=== PATIENT | male | born 1935 | race Two or more races ===

== ENCOUNTER 2023-04-30 12:49 | Inpatient (IN) | payer MEDICARE ==
[~2023-04-30] VITALS: Ht 180.3 cm; Wt 62.1 kg
[2023-04-30] MEDS ORDERED: POLY17PO4 PO (13:33)
[2023-04-30] MEDS ORDERED: PANT40TA2 PO (13:33)
[2023-04-30] MEDS ORDERED: IPRA3AMP23 IH (13:33)
[2023-04-30] MEDS ORDERED: DOCU-141 PO (13:33)
[2023-04-30] MEDS ORDERED: LORA-259 PO (13:33)
[2023-04-30] MEDS ORDERED: OLME20TA13 PO (13:33)
[2023-04-30] MEDS ORDERED: ONDA4TAB5 PO (13:33)
[2023-04-30] MEDS ORDERED: ACET-868 PO (13:33)
[2023-04-30] MEDS ORDERED: MECL-182 PO (13:33)
[2023-04-30] MEDS ORDERED: FINA5TAB11 PO (13:33)
[2023-04-30 13:48] LABS: BASOPHILS % (AUTO) 0.5 % (0.0-2.0); EOSINOPHILS % (AUTO) 0.5 % (0.0-6.0); HEMATOCRIT 42 % (39-51); HEMOGLOBIN 13.7 g/dL (13.5-17.5); LYMPHOCYTES # (AUTO) 0.9 K/uL (0.8-4.8); LYMPHOCYTES % (AUTO) 18.2 % (20.0-44.0); MEAN CORPUSCULAR HEMOGLOBIN 30 PG (26.0-33.0); MEAN CORPUSCULAR HGB CONC 33 g/dl (31.0-36.0); MEAN CORPUSCULAR VOLUME 90 fL (80-96); MONOCYTES # (AUTO) 0.4 K/uL (0.1-1.30); MONOCYTES % (AUTO) 7.8 % (2.0-12.0); NEUTROPHILS # (AUTO) 3.8 K/uL (1.8-8.9); PLATELET COUNT (AUTO) 143 K/uL (150-450); RED BLOOD CELL COUNT(AUTO) 4.66 MIL/uL (4.5-6.0); RED CELL DISTRIBUTION WIDTH 13.5 % (11.5-15.0); WHITE BLOOD COUNT (AUTO) 5.2 K/uL (4.3-11.0)
[2023-04-30 13:55] LABS: CALCIUM, SERUM 9.4 mg/dL (8.5-10.1); CARBON DIOXIDE 24 mmol/L (21-32); CHLORIDE 105 mmol/L (98-107); CREATININE 0.9 mg/dL (0.6-1.3); GLUCOSE 107 mg/dL (74-106); POTASSIUM 3.9 mmol/L (3.5-5.1); SODIUM SERUM 140 mmol/L (136-145); UREA NITROGEN, BLOOD 16 mg/dL (7-18)
[2023-04-30 14:01] LABS: ALANINE AMINOTRANSFERASE 15 U/L (12-78); ALBUMIN 3.7 g/dL (3.4-5.0); ALKALINE PHOSPHATASE 62 U/L (46-116); ASPARTATE AMINOTRANSFERASE 20 U/L (15-37); BILIRUBIN,DIRECT 0.2 mg/dL (0.0-0.2); BILIRUBIN,TOTAL 1.2 mg/dL (0.2-1.0); TOTAL PROTEIN, SERUM 7.1 g/dL (6.4-8.2)
[2023-04-30 14:09] LABS: ACETAMINOPHEN <10 ug/ml (10-30); ALCOHOL, BLOOD < 3 mg/dL (0-10); SALICYLATE < 2.3 mg/dL (2.8-20.0)
[2023-04-30 14:14] LABS: ADD URINE CULTURE YES; APPEARANCE,URINE CLEAR (CLEAR); BACTERIA,URINE Rare /HPF (None Seen); BILIRUBIN,URINE 1+ (NEGATIVE); BLOOD, URINE NEGATIVE Ery/uL (NEGATIVE); COLOR,URINE YELLOW (YELLOW); KETONES,URINE 1+ mg/dL (NEGATIVE); LEUKOCYTE ESTERASE ,URINE 1+ (NEGATIVE); NITRITE, URINE NEGATIVE (NEGATIVE); PH,URINE 5.5 (5.0-8.0); PROTEIN,URINE TRACE mg/dl (NEGATIVE); RBC,URINE 0-2 /HPF (0-2); SQUAMOUS EPITHELIAL CELL,UR Few /HPF (None Seen); UGLUCOSE NEGATIVE (NEGATIVE); UROBILINOGEN,URINE 0.2 EU/dL (0.2)
[2023-04-30 14:28] LABS: AMPHETAMINE, URINE NEGATIVE (NEGATIVE); BARBITURATE, URINE NEGATIVE (NEGATIVE); BENZODIAZEPINE, URINE NEGATIVE (NEGATIVE); CANNABINOID, URINE NEGATIVE (NEGATIVE); COCCAINE, URINE NEGATIVE (NEGATIVE); OPIATE, URINE NEGATIVE (NEGATIVE); PHENCYCLIDINE SCREEN,URINE NEGATIVE (NEGATIVE)
[2023-04-30] MEDS ORDERED: ACETAMINOPHEN 325 MG TABLET PO PRN ×2 (16:30→21:30)
[2023-04-30] MEDS: DOCUSATE SODIUM 100 MG CAPSULE PO SCH (17:00)
[2023-04-30] MEDS ORDERED: IPRATROPIUM NEB FS 0.5 MG/2.5 ML AMPUL.NEB NEB PRN (17:00)
[2023-04-30] MEDS ORDERED: ALBUTEROL FS 2.5 MG/0.5 ML VIAL.NEB NEB PRN (17:00)
[2023-04-30] MEDS ORDERED: TEMAZEPAM 7.5 MG CAPSULE PO PRN (21:30)
[2023-04-30] MEDS ORDERED: MAGNESIUM HYDROXIDE 30 ML UDC PO PRN (21:30)
[2023-04-30] MEDS ORDERED: LORAZEPAM 0.5 MG TABLET PO PRN (21:30)
[2023-04-30] MEDS ORDERED: BLOOD SUGAR DIAGNOSTIC 1 EACH STRIP IN ONE (21:30)
[2023-04-30] MEDS ORDERED: MAG HYDROX/AL HYDROX/SIMETH 30 ML UDC PO PRN (21:30)
[2023-04-30] MEDS: FINASTERIDE (5 MG) 5 MG TABLET PO SCH (21:57)
[2023-04-30] MEDS: CEPHALEXIN MONOHYDRATE 500 MG CAPSULE PO SCH (21:57)
[2023-04-30 23:38] VITALS: BP 144/71; TEMP 98.1; O2SAT 99
[2023-05-01] MEDS: CEPHALEXIN MONOHYDRATE 500 MG CAPSULE PO SCH ×3 (05:15→21:18)
[2023-05-01 07:38] LABS: CREATININE 0.9 mg/dL (0.6-1.3)
[2023-05-01 07:45] LABS: CHOLESTEROL 182 mg/dL (<200); HDL CHOLESTEROL 47 mg/dL (40-60); LDL 117 mg/dL (0-99); TRIGLYCERIDES 74 mg/dL (30-150)
[2023-05-01 08:00] VITALS: BP 129/60; TEMP 97.8; O2SAT 95
[2023-05-01] MEDS: PANTOPRAZOLE 40 MG TABLET.DR PO SCH (08:17)
[2023-05-01] MEDS: POLYETHYLENE GLYCOL 3350 17 GM POWD.PACK PO SCH (09:02)
[2023-05-01] MEDS: DOCUSATE SODIUM 100 MG CAPSULE PO SCH ×2 (09:02→17:13)
[2023-05-01] MEDS: LOSARTAN POTASSIUM 50 MG TABLET PO SCH (09:03)
[2023-05-01] MEDS: DIVALPROEX SODIUM 125 MG CAP.SPRINK PO SCH ×2 (13:18→17:13)
[2023-05-01 16:00] VITALS: BP 133/81; TEMP 97.9; O2SAT 98
[2023-05-01] MEDS: ENSURE ENLIVE 237 ML LIQUID (VANILLA) PO SCH (17:14)
[2023-05-01 21:04] VITALS: BP 132/77; TEMP 98; O2SAT 97
[2023-05-01] MEDS: FINASTERIDE (5 MG) 5 MG TABLET PO SCH (21:18)
[2023-05-01] MEDS: MIRTAZAPINE 15 MG TABLET PO SCH (21:18)
[2023-05-02] MEDS: CEPHALEXIN MONOHYDRATE 500 MG CAPSULE PO SCH ×3 (05:57→21:08)
[2023-05-02] MEDS: ENSURE ENLIVE 237 ML LIQUID (VANILLA) PO SCH ×2 (07:58→17:44)
[2023-05-02] MEDS: PANTOPRAZOLE 40 MG TABLET.DR PO SCH (07:58)
[2023-05-02 08:00] VITALS: BP 128/79; TEMP 97.4; O2SAT 99
[2023-05-02] MEDS: POLYETHYLENE GLYCOL 3350 17 GM POWD.PACK PO SCH (08:16)
[2023-05-02] MEDS: DIVALPROEX SODIUM 125 MG CAP.SPRINK PO SCH ×2 (08:16→17:38)
[2023-05-02] MEDS: DOCUSATE SODIUM 100 MG CAPSULE PO SCH ×2 (08:16→17:39)
[2023-05-02] MEDS: LOSARTAN POTASSIUM 50 MG TABLET PO SCH (08:17)
[2023-05-02 16:00] VITALS: BP 160/87; TEMP 98; O2SAT 96
[2023-05-02 20:21] VITALS: BP 109/61; TEMP 98; O2SAT 96
[2023-05-02] MEDS: FINASTERIDE (5 MG) 5 MG TABLET PO SCH (21:08)
[2023-05-02] MEDS: MIRTAZAPINE 15 MG TABLET PO SCH (21:08)
[2023-05-03] MEDS: CEPHALEXIN MONOHYDRATE 500 MG CAPSULE PO SCH ×3 (05:57→21:31)
[2023-05-03 08:00] VITALS: BP 126/65; TEMP 97.7; O2SAT 98
[2023-05-03] MEDS: ENSURE ENLIVE 237 ML LIQUID (VANILLA) PO SCH ×2 (08:06→17:05)
[2023-05-03] MEDS: PANTOPRAZOLE 40 MG TABLET.DR PO SCH (08:06)
[2023-05-03] MEDS: DOCUSATE SODIUM 100 MG CAPSULE PO SCH ×2 (08:48→17:05)
[2023-05-03] MEDS: DIVALPROEX SODIUM 125 MG CAP.SPRINK PO SCH ×3 (08:49→17:05)
[2023-05-03] MEDS: POLYETHYLENE GLYCOL 3350 17 GM POWD.PACK PO SCH (08:49)
[2023-05-03] MEDS: LOSARTAN POTASSIUM 50 MG TABLET PO SCH (08:49)
[2023-05-03 16:00] VITALS: BP 102/57; TEMP 98.1; O2SAT 97
[2023-05-03 20:00] VITALS: BP 138/71; TEMP 98.6; O2SAT 99
[2023-05-03] MEDS: MIRTAZAPINE 15 MG TABLET PO SCH (21:31)
[2023-05-03] MEDS: FINASTERIDE (5 MG) 5 MG TABLET PO SCH (21:31)
[2023-05-04] MEDS: CEPHALEXIN MONOHYDRATE 500 MG CAPSULE PO SCH ×3 (05:14→20:40)
[2023-05-04 08:00] VITALS: BP 111/64; TEMP 98.6; O2SAT 99
[2023-05-04] MEDS: DIVALPROEX SODIUM 125 MG CAP.SPRINK PO SCH ×3 (08:14→16:11)
[2023-05-04] MEDS: PANTOPRAZOLE 40 MG TABLET.DR PO SCH (08:14)
[2023-05-04] MEDS: DOCUSATE SODIUM 100 MG CAPSULE PO SCH ×3 (08:15→16:11)
[2023-05-04] MEDS: LOSARTAN POTASSIUM 50 MG TABLET PO SCH (08:15)
[2023-05-04] MEDS: POLYETHYLENE GLYCOL 3350 17 GM POWD.PACK PO SCH ×2 (08:15→08:24)
[2023-05-04] MEDS: ENSURE ENLIVE 237 ML LIQUID (VANILLA) PO SCH ×2 (08:17→17:40)
[2023-05-04 16:00] VITALS: BP 110/70; TEMP 97.7; O2SAT 100
[2023-05-04 20:01] VITALS: BP 118/63; TEMP 97.6; O2SAT 98
[2023-05-04] MEDS: MIRTAZAPINE 15 MG TABLET PO SCH (21:05)
[2023-05-04] MEDS: FINASTERIDE (5 MG) 5 MG TABLET PO SCH (21:05)
[2023-05-05] MEDS: CEPHALEXIN MONOHYDRATE 500 MG CAPSULE PO SCH ×3 (05:09→21:22)
[2023-05-05 08:00] VITALS: BP 115/70; TEMP 98; O2SAT 100
[2023-05-05] MEDS: DIVALPROEX SODIUM 125 MG CAP.SPRINK PO SCH ×3 (08:17→16:29)
[2023-05-05] MEDS: PANTOPRAZOLE 40 MG TABLET.DR PO SCH (08:17)
[2023-05-05] MEDS: LOSARTAN POTASSIUM 50 MG TABLET PO SCH (08:17)
[2023-05-05] MEDS: POLYETHYLENE GLYCOL 3350 17 GM POWD.PACK PO SCH ×2 (08:17→08:22)
[2023-05-05] MEDS: DOCUSATE SODIUM 100 MG CAPSULE PO SCH ×3 (08:17→16:29)
[2023-05-05] MEDS: ENSURE ENLIVE 237 ML LIQUID (VANILLA) PO SCH ×2 (08:17→17:49)
[2023-05-05 16:00] VITALS: BP 114/64; TEMP 97.6; O2SAT 100
[2023-05-05 20:00] VITALS: BP 108/74; TEMP 97.6; O2SAT 97
[2023-05-05] MEDS: MIRTAZAPINE 15 MG TABLET PO SCH (22:00)
[2023-05-05] MEDS: FINASTERIDE (5 MG) 5 MG TABLET PO SCH (22:00)
[2023-05-06] MEDS: CEPHALEXIN MONOHYDRATE 500 MG CAPSULE PO SCH ×3 (04:47→20:22)
[2023-05-06 07:20] LABS: BASOPHILS % (AUTO) 0.5 % (0.0-2.0); EOSINOPHILS # (AUTO) 0.2 K/uL (0.0-0.7); EOSINOPHILS % (AUTO) 3.7 % (0.0-6.0); HEMATOCRIT 43 % (39-51); LYMPHOCYTES # (AUTO) 1.2 K/uL (0.8-4.8); LYMPHOCYTES % (AUTO) 25.5 % (20.0-44.0); MEAN CORPUSCULAR HEMOGLOBIN 30 PG (26.0-33.0); MEAN CORPUSCULAR HGB CONC 33 g/dl (31.0-36.0); MEAN CORPUSCULAR VOLUME 91 fL (80-96); MONOCYTES # (AUTO) 0.5 K/uL (0.1-1.30); MONOCYTES % (AUTO) 9.6 % (2.0-12.0); NEUTROPHILS # (AUTO) 2.9 K/uL (1.8-8.9); NEUTROPHILS % (AUTO) 60.7 % (43.0-81.0); PLATELET COUNT (AUTO) 145 K/uL (150-450); RED BLOOD CELL COUNT(AUTO) 4.75 MIL/uL (4.5-6.0); RED CELL DISTRIBUTION WIDTH 13.1 % (11.5-15.0); WHITE BLOOD COUNT (AUTO) 4.8 K/uL (4.3-11.0)
[2023-05-06 07:42] LABS: ALBUMIN 3.3 g/dL (3.4-5.0); BILIRUBIN,TOTAL 0.5 mg/dL (0.2-1.0); CALCIUM, SERUM 9.6 mg/dL (8.5-10.1); POTASSIUM 4.5 mmol/L (3.5-5.1); TOTAL PROTEIN, SERUM 6.9 g/dL (6.4-8.2)
[2023-05-06 08:00] VITALS: BP 124/61; TEMP 97.8; O2SAT 94
[2023-05-06] MEDS: DIVALPROEX SODIUM 125 MG CAP.SPRINK PO SCH ×3 (08:23→16:54)
[2023-05-06] MEDS: DOCUSATE SODIUM 100 MG CAPSULE PO SCH ×2 (08:23→16:54)
[2023-05-06] MEDS: PANTOPRAZOLE 40 MG TABLET.DR PO SCH (08:23)
[2023-05-06] MEDS: POLYETHYLENE GLYCOL 3350 17 GM POWD.PACK PO SCH (08:23)
[2023-05-06] MEDS: LOSARTAN POTASSIUM 50 MG TABLET PO SCH (08:23)
[2023-05-06] MEDS: ENSURE ENLIVE 237 ML LIQUID (VANILLA) PO SCH ×2 (08:24→16:54)
[2023-05-06 16:00] VITALS: BP 110/59; TEMP 98; O2SAT 99
[2023-05-06 20:00] VITALS: BP 128/69; TEMP 98.3; O2SAT 95
[2023-05-06] MEDS: FINASTERIDE (5 MG) 5 MG TABLET PO SCH (21:30)
[2023-05-06] MEDS: MIRTAZAPINE 15 MG TABLET PO SCH (21:30)
[2023-05-07] MEDS: CEPHALEXIN MONOHYDRATE 500 MG CAPSULE PO SCH ×3 (05:03→21:26)
[2023-05-07 08:00] VITALS: BP 123/64; TEMP 98.1; O2SAT 96
[2023-05-07] MEDS: ENSURE ENLIVE 237 ML LIQUID (VANILLA) PO SCH ×2 (08:08→16:23)
[2023-05-07] MEDS: DOCUSATE SODIUM 100 MG CAPSULE PO SCH ×2 (08:23→16:19)
[2023-05-07] MEDS: DIVALPROEX SODIUM 125 MG CAP.SPRINK PO SCH ×3 (08:23→16:19)
[2023-05-07] MEDS: PANTOPRAZOLE 40 MG TABLET.DR PO SCH (08:23)
[2023-05-07] MEDS: POLYETHYLENE GLYCOL 3350 17 GM POWD.PACK PO SCH (08:23)
[2023-05-07] MEDS: LOSARTAN POTASSIUM 50 MG TABLET PO SCH (08:23)
[2023-05-07 16:00] VITALS: BP 114/58; TEMP 97.7; O2SAT 97
[2023-05-07 20:00] VITALS: BP 114/56; TEMP 98.1; O2SAT 99
[2023-05-07] MEDS: FINASTERIDE (5 MG) 5 MG TABLET PO SCH (21:26)
[2023-05-07] MEDS: MIRTAZAPINE 15 MG TABLET PO SCH (21:26)
[2023-05-08] MEDS: CEPHALEXIN MONOHYDRATE 500 MG CAPSULE PO SCH ×2 (04:41→13:23)
[2023-05-08 08:00] VITALS: BP 118/67; TEMP 98.6; O2SAT 97
[2023-05-08] MEDS: POLYETHYLENE GLYCOL 3350 17 GM POWD.PACK PO SCH (08:33)
[2023-05-08] MEDS: DOCUSATE SODIUM 100 MG CAPSULE PO SCH (08:33)
[2023-05-08] MEDS: DIVALPROEX SODIUM 125 MG CAP.SPRINK PO SCH ×2 (08:33→13:23)
[2023-05-08 08:34] VITALS: BP 118/67
[2023-05-08] MEDS: ENSURE ENLIVE 237 ML LIQUID (VANILLA) PO SCH (08:34)
[2023-05-08] MEDS: PANTOPRAZOLE 40 MG TABLET.DR PO SCH (08:34)
[2023-05-08] MEDS: LOSARTAN POTASSIUM 50 MG TABLET PO SCH (08:34)
== END 2023-05-08 15:05 | DRG 885 ==
LOC: ER 13:01 → GPS 19:37
PROVIDERS: ADMIT Psychiatry & Neurology Psychosomatic Medicine; ATTEND Nurse Practitioner Acute Care
DX: F39 Unspecified mood [affective] disorder (principal); F03.93 Unspecified dementia, unspecified severity, with mood disturbance; N39.0 Urinary tract infection, site not specified; I10 Essential (primary) hypertension; K21.9 Gastro-esophageal reflux disease without esophagitis; E78.5 Hyperlipidemia, unspecified; Z20.822 Contact with and (suspected) exposure to COVID-19; Z73.6 Limitation of activities due to disability; B96.4 Proteus (mirabilis) (morganii) as the cause of diseases classified elsewhere; N40.1 Benign prostatic hyperplasia with lower urinary tract symptoms
CPT/HCPCS: 36415; 80048-TC; 80053-TC; 80061-TC; 80076-TC; 80164-TC; 81001; 82565-TC; 82962-TC; 85025-TC; 87081-TC; 87086-TC; 97110-TC; 97112-TC; 97116-TC; 97530-TC; G0480